=== PATIENT | female | born 1940 | race Caucasian/White ===

== ENCOUNTER → 2021-11-04 | Outpatient (CLI) | payer MEDICARE, OTHER ==
[~2021-11-04] MED LIST: ASPI325 PO; HYDACE5 PO; LEVSOD50 PO; LISI20 PO; LISI5 PO; Pravastatin Sod40 MG PO; ROSU10TA PO; ROSU5 PO; SAM-E200 MG PO; UBID10
== END ==
LOC: LAB SHORT 10:35
DX: M81.0 Age-related osteoporosis without current pathological fracture (principal)
CPT/HCPCS: 82306

== ENCOUNTER → 2022-02-23 | Outpatient (CLI) | payer MEDICARE, OTHER ==
[2022-02-23 15:19] LABS: BASOPHILS ABSOLUTE AUTO 0.06 K/mm3 (0.00-0.23); BASOPHILS PERCENT AUTO 1 % (0-2); EOSINOPHILS ABSOLUTE AUTO 0.37 K/mm3 (0.00-0.68); EOSINOPHILS PERCENT AUTO 6 % (0-6); Hematocrit 43.2 % (33.0-51.0); Hemoglobin 13.9 g/dL (11.5-16.0); IMMATURE GRAN ABSOLUTE AUTO 0.01 K/mm3 (0.00-0.10); IMMATURE GRAN PERCENT AUTO 0 % (0-1); LYMPHOCYTES ABSOLUTE AUTO 1.68 K/mm3 (0.84-5.20); LYMPHOCYTES PERCENT AUTO 27 % (21-46); MONOCYTES ABSOLUTE AUTO 0.91 K/mm3 (0.16-1.47); MONOCYTES PERCENT AUTO 15 % (4-13); Mean Corpuscular HGB 29.3 pg (26.0-34.0); Mean Corpuscular HGB Conc 32.2 g/dL (31.5-36.5); Mean Corpuscular Volume 91 fL (80-100); Mean Platelet Volume 10.5 fL (9.1-12.4); NEUTROPHILS ABSOLUTE AUTO 3.21 K/mm3 (1.96-9.15); NEUTROPHILS PERCENT AUTO 51 % (41-73); NRBC ABSOLUTE 0.18 K/mm3 (0.00-0.02); NRBC Auto 2.9 /100 WBC (0.0-0.2); Platelet Count 326 K/mm3 (150-400); RDW Coefficient Variation 14.1 % (11.7-14.2); RDW Standard Deviation 47.8 fL (35.1-46.3); Red Blood Cell Count 4.75 M/mm3 (3.80-5.20); White Blood Cell Count 6.24 K/mm3 (4.00-11.30)
[2022-02-23 15:52] LABS: Albumin, Blood 3.2 g/dL (3.4-5.0); Albumin/Globulin Ratio 1.1 (0.8-1.8); Bilirubin, Total 0.5 mg/dL (0.1-1.0); Bun/Creatinine Ratio 33.6 (12.0-20.0); Calcium, Blood 8.8 mg/dL (8.5-10.1); Creatinine, Blood 0.74 mg/dL (0.40-1.00); Globulin, Blood 2.8 g/dL (2.2-4.0); Potassium, Blood 4.1 mmol/L (3.5-5.5); Thyroid Stimulating Hormone 2.26 uIU/mL (0.360-4.800)
== END | disposition home or self-care (01) ==
LOC: LAB 13:55 → LAB SHORT 13:55
PROVIDERS: Internal Medicine
DX: E03.9 Hypothyroidism, unspecified (principal); R53.83 Other fatigue
CPT/HCPCS: 80053; 84443; 85025

== ENCOUNTER 2022-06-22 05:49 | Day surgery (SDC) | payer MEDICARE, OTHER ==
[~2022-06-22] VITALS: Ht 165.1 cm; Wt 64.2 kg
[~2022-06-22 05:49] MED LIST changes: +ALEN70 PO; +ASPI81CH PO; +CBD OIL; +LEVSOD75 PO; +OXYB5 PO; +Preservision S1 EACH PO; +VITAMIN D310 MC4 PO
--- NOTE | 2022-06-22 07:38 | NUR ---
History, Chart, Medications and Allergies reviewed before start of procedure. Patient confirms NPO status and agrees with scheduled surgery.
--- NOTE | 2022-06-22 19:32 | NUR ---
SHIFT SUMMARY NEW ADMIT TO UNIT POST OP DAY [address] SOOD. SPINAL IN EFFECT FOR SEVERAL HOURS. ABLE TO AMBULATE IN HALLS WITH PHYSICAL THERAPY. BASELINE INCONTINENCE, PULL UPS WET POST OP. TOLERATING REGULAR DIET AND LIQUIDS. PAIN CONTROLLED WITH NON-NARCOTIC MEDS, SEE EMAR. KARINAEL TO RIGHT KNEE C/D/I. REPORT GIVEN TO INSTRUMENTATION DESIGNER RN.
--- NOTE | 2022-06-23 03:50 | NUR ---
SHIFT SUMMARY POD1 R TOTAL KNEE WITH DR. SOOD. PT HAS AQUACEL DRESSING, REMAIN CDI OVERNIGHT. PT REPORTS MINIMAL PAIN. PAIN MANAGED WITH TYLENOL AND TORADOL. TOLERATING PO INTAKE. DENIES N/V. AMBULATES WITH 1PA IN THE BATHROOM WTH FWW AND GB. VSS. VOIDING ADEQUATELY. DENIES COMPLAINTS. CALL LIGHT WTIHIN REACH. WILL PROVIDE REPORT TO ONCOMING NURSE.
[2022-06-23 05:08] LABS: BASOPHILS ABSOLUTE AUTO 0.03 K/mm3 (0.00-0.23); BASOPHILS PERCENT AUTO 0 % (0-2); EOSINOPHILS ABSOLUTE AUTO 0.03 K/mm3 (0.00-0.68); EOSINOPHILS PERCENT AUTO 0 % (0-6); Hematocrit 37.3 % (33.0-51.0); Hemoglobin 12.6 g/dL (11.5-16.0); IMMATURE GRAN ABSOLUTE AUTO 0.05 K/mm3 (0.00-0.10); IMMATURE GRAN PERCENT AUTO 0 % (0-1); LYMPHOCYTES ABSOLUTE AUTO 1.88 K/mm3 (0.84-5.20); LYMPHOCYTES PERCENT AUTO 14 % (21-46); MONOCYTES ABSOLUTE AUTO 1.15 K/mm3 (0.16-1.47); MONOCYTES PERCENT AUTO 9 % (4-13); Mean Corpuscular HGB 30.1 pg (26.0-34.0); Mean Corpuscular HGB Conc 33.8 g/dL (31.5-36.5); Mean Corpuscular Volume 89 fL (80-100); Mean Platelet Volume 9.9 fL (9.1-12.4); NEUTROPHILS ABSOLUTE AUTO 10.36 K/mm3 (1.96-9.15); NEUTROPHILS PERCENT AUTO 77 % (41-73); Platelet Count 198 K/mm3 (150-400); RDW Coefficient Variation 13.5 % (11.7-14.2); RDW Standard Deviation 43.8 fL (35.1-46.3); Red Blood Cell Count 4.19 M/mm3 (3.80-5.20)
[2022-06-23 06:07] LABS: Bun/Creatinine Ratio 27.8 (12.0-20.0); Calcium, Blood 8.8 mg/dL (8.5-10.1); Creatinine, Blood 0.72 mg/dL (0.40-1.00); Magnesium, Blood 2.5 mg/dL (1.6-2.4); Potassium, Blood 4.1 mmol/L (3.5-5.5)
[2022-06-23] MEDS ORDERED: OXYC5 PO (11:23)
[2022-06-23] MEDS ORDERED: ACET500 PO (11:23)
--- NOTE | 2022-06-23 12:02 | NUR ---
DISCHARGE SUMMARY PATIENT ALERT AND ORIENTED THROUGHOUT AM. CLEARED FOR DISCHARGEHOME BY PHYSICAL THERAPY. TOLERATING REGULAR DIET AND LIQUIDS. PAIN CONTROLLED WITH NON-NARCOTIC PAIN MEDS. R KNEE INCISION C/D/I. IV DC'D WNL.DISCHARGE EDUCATION GIVEN ON PAIN MEDS, INCISION CARE, ACTIVITY, AND FOLLOW UP APPTS. PATIENT LEFT UNIT VIA WHEELCHAIR AT 1200 WITH SPOUSE FOR HOME.
== END 2022-06-23 13:44 | disposition home or self-care (01) ==
LOC: ORSCMMR 05:49 → SURS 10:19 → ORD 10:45 → ORSCMMR 10:45
PROVIDERS: Orthopaedic Surgery
DX: M17.11 Unilateral primary osteoarthritis, right knee (principal); E03.9 Hypothyroidism, unspecified
CPT/HCPCS: 27447; 0055T; 36415; 73560-RT; 80048; 83735; 85025; 97110; 97116; 97162; 97530; A9270; C1776; J0171; J0690; J0735; J1100; J1885; J2250; J2405; J2704; J2795; J3010; J7120

== ENCOUNTER → 2023-08-20 | Outpatient (CLI) | payer MEDICARE, OTHER ==
[~2023-08-20] MED LIST changes: +ACET500 PO; +OXYC5 PO
[2023-08-20 17:55] LABS: BASOPHILS ABSOLUTE AUTO 0.05 K/mm3 (0.00-0.23); BASOPHILS PERCENT AUTO 1 % (0-2); EOSINOPHILS ABSOLUTE AUTO 0.11 K/mm3 (0.00-0.68); EOSINOPHILS PERCENT AUTO 2 % (0-6); Hematocrit 42.3 % (33.0-51.0); Hemoglobin 13.9 g/dL (11.5-16.0); IMMATURE GRAN ABSOLUTE AUTO 0.02 K/mm3 (0.00-0.10); IMMATURE GRAN PERCENT AUTO 0 % (0-1); LYMPHOCYTES ABSOLUTE AUTO 1.79 K/mm3 (0.84-5.20); LYMPHOCYTES PERCENT AUTO 25 % (21-46); MONOCYTES PERCENT AUTO 8 % (4-13); Mean Corpuscular HGB 29.6 pg (26.0-34.0); Mean Corpuscular HGB Conc 32.9 g/dL (31.5-36.5); Mean Corpuscular Volume 90 fL (80-100); Mean Platelet Volume 10.4 fL (9.1-12.4); NEUTROPHILS ABSOLUTE AUTO 4.67 K/mm3 (1.96-9.15); NEUTROPHILS PERCENT AUTO 65 % (41-73); Platelet Count 229 K/mm3 (150-400); RDW Coefficient Variation 13.7 % (11.7-14.2); RDW Standard Deviation 45.1 fL (35.1-46.3); RETICULOCYTE ABSOLUTE 0.0347 M/mm3 (0.0200-0.1100); RETICULOCYTE COUNT PERCENT 0.74 % (0.50-2.50); Red Blood Cell Count 4.69 M/mm3 (3.80-5.20); White Blood Cell Count 7.24 K/mm3 (4.00-11.30)
[2023-08-20 18:08] LABS: CHOL/HDL RATIO 3.4; Cholesterol 232 mg/dL (50-200); Ferritin, Serum 58 ng/mL (8-252); HDL Cholesterol 69 mg/dL (>39); Iron Serum 71 ug/dL (50-170); LDL/HDL RATIO 2.1; Low Density Lipoprotein Chol 143 mg/dL (0-110); Percent Saturation 27.7 % (15.0-50.0); Total Iron Binding Capacity 256 ug/dL (250-450); Triglycerides 100 mg/dL (30-160); Very Low Density Lipoprot Chol 20 mg/dL (6-32)
[2023-08-23 20:07] LABS: A/G RATIO 1.9 (1.2-2.2); BILIRUBIN, TOTAL 0.4 mg/dL (0.0-1.2); CALCIUM, SERUM 9.1 mg/dL (8.7-10.3); CREATININE, SERUM 0.9 mg/dL (0.57-1.00); GLOBULIN, TOTAL 2.2 g/dL (1.5-4.5); POTASSIUM, SERUM 4.4 mmol/L (3.5-5.2); PROTEIN, TOTAL, SERUM 6.4 g/dL (6.0-8.5)
== END ==
LOC: LAB SHORT 16:23 → LAB 16:23
PROVIDERS: Student in an Organized Health Care Education/Training Program
DX: D50.8 Other iron deficiency anemias (principal); D64.9 Anemia, unspecified; E78.2 Mixed hyperlipidemia; M81.0 Age-related osteoporosis without current pathological fracture; Z79.899 Other long term (current) drug therapy
CPT/HCPCS: 80053; 80061; 82306; 82607; 82728; 82746; 83540; 83550; 85025; 85045

== ENCOUNTER 2024-12-07 09:22 | Day surgery (SDC) | payer MEDICARE ==
[~2024-12-07] VITALS: Ht 160 cm; Wt 65.9 kg
[~2024-12-07 09:22] MED LIST changes: +Balanced Salt Epinephrine Irrigation Solution 500 mL IR SCH; +Lidocaine HCl/Pf 1% 5 ML VIAL XX SCH; +Moxifloxacin HCL 0.5 MG/0.1 ML 0.4MLSYR LEFTEYE SCH; +NS 500 ML IV ONE; +PHENYLEPHRINE\\TROPICAMIDE\\TETRACAINE OPHTHALMIC DILATING SOLN LEFTEYE PRN; +Povidone-Iodine 450 DROP/30 ML Solution LEFTEYE SCH; +Povidone-Iodine 450 DROP/30 ML Solution ONE; +Tetracaine HCl/Pf 0.5% Opth Soln 4 ml ONE; +Triamcinolone Inj Susp 40 MG / ML 1ML Vial INJ SCH; +Triamcinolone Inj Susp 40 MG / ML 1ML Vial ONE
[2024-12-07] MEDS ORDERED: SOLIFENACIN SUCC5 MG (10:10)
[2024-12-07] MEDS ORDERED: CARBIDOPA-LEVO1 EA15 (10:10)
[2024-12-07] MEDS ORDERED: NS 500 ML IV ONE (10:17)
[2024-12-07] MEDS ORDERED: Midazolam HCl 1MG / ML 2ML Vial ONE (11:05)
[2024-12-07] MEDS ORDERED: FentaNYL Citrate 50 MCG/ML 2 ML Injection ONE (11:05)
[2024-12-07 11:34] VITALS: BP 151/78
== END 2024-12-07 11:56 | disposition home or self-care (01) ==
LOC: ORSCSDS 09:22
PROVIDERS: Ophthalmology
PROC: 08RK3JZ Replacement of Left Lens with Synthetic Substitute, Percutaneous Approach (ICD-10-PCS; principal; 2024-12-07 11:00)
DX: H25.813 Combined forms of age-related cataract, bilateral (principal); I10 Essential (primary) hypertension; E78.5 Hyperlipidemia, unspecified; E03.9 Hypothyroidism, unspecified; G20.A1 Parkinson's disease without dyskinesia, without mention of fluctuations; Z79.82 Long term (current) use of aspirin; Z79.899 Other long term (current) drug therapy
CPT/HCPCS: J2250; J3010; J3301; J7040; V2632